=== PATIENT | female | born 1985 | race Caucasian/White ===

== ENCOUNTER 2016-11-04 22:03 | Emergency (ER) | payer SELFPAY ==
[2016-11-04 22:13] VITALS: BP 156/104
== END 2016-11-04 23:33 | disposition home or self-care (01) ==
LOC: ED 22:03
DX: S09.90XA Unspecified injury of head, initial encounter (principal); X58.XXXA Exposure to other specified factors, initial encounter; Y93.89 Activity, other specified; Y99.8 Other external cause status; Y92.89 Other specified places as the place of occurrence of the external cause

== ENCOUNTER 2016-11-19 20:42 | Emergency (ER) | payer SELFPAY ==
[~2016-11-19] VITALS: Ht 162.6 cm; Wt 80.3 kg
[2016-11-19 22:00] VITALS: BP 132/93
== END 2016-11-19 22:00 | disposition home or self-care (01) ==
LOC: ED 20:42
DX: S00.83XA Contusion of other part of head, initial encounter (principal); X58.XXXA Exposure to other specified factors, initial encounter; Y93.89 Activity, other specified; Y92.89 Other specified places as the place of occurrence of the external cause; Y99.8 Other external cause status